=== PATIENT | male | born 1945 | race Caucasian/White ===

== ENCOUNTER 2020-02-29 05:30 | Observation (INO) | payer MEDICARE, BC ==
[2020-02-22 10:21] LABS: BASOPHILS % (AUTO) 0.9 % (0-1); EOSINOPHILS # (AUTO) 0.2 X10'3 (0-0.9); EOSINOPHILS % (AUTO) 2.7 % (0-6); LYMPHOCYTES # (AUTO) 1.4 X10'3 (1.1-4.8); LYMPHOCYTES % (AUTO) 24.5 % (21-51); MEAN CORPUSCULAR HEMOGLOBIN 33.4 PG (27.0-31.0); MEAN CORPUSCULAR HGB CONC 33.7 g/dL (33.0-36.5); MEAN CORPUSCULAR VOLUME 99.2 FL (78-98); MEAN PLATELET VOLUME 8.8 FL (7.4-10.4); MONOCYTES # (AUTO) 0.6 X10'3 (0-0.9); MONOCYTES % (AUTO) 9.8 % (2-12); NEUTROPHILS # (AUTO) 3.6 X10'3 (1.8-7.7); NEUTROPHILS % (AUTO) 62.1 % (42-75); PRE OP HEMATOCRIT 40.2 % (42.0-52.0); PRE OP HEMOGLOBIN 13.5 g/dL (14.0-17.9); PRE OP PLATELET COUNT 249 X10'3 (140-440); RED BLOOD COUNT 4.05 X10'6 (4.70-6.10); RED CELL DISTRIBUTION WIDTH 13.7 % (11.5-14.5)
[2020-02-22 10:33] LABS: ALBUMIN 3.9 G/DL (3.4-5.0); ALBUMIN/GLOBULIN RATIO 1.3 (1.1-1.5); ALKALINE PHOSPHATASE 56 IU/L (46-116); BLOOD UREA NITROGEN 20 MG/DL (7-18); BUN/CREATININE RATIO 16.5 (5.4-32.0); CALCIUM 8.9 MG/DL (8.5-10.1); CHLORIDE 102 MMOL/L (99-107); CREATININE 1.21 MG/DL (0.60-1.10); PRE OP ALT 24 U/L (30-65); PRE OP ANION GAP 6 (8-16); PRE OP AST 17 U/L (10-37); PRE OP BILIRUB, TOTAL 0.3 MG/DL (0.0-1.0); PRE OP GLUCOSE 89 MG/DL (70-104); PRE OP POTASSIUM 4.3 MMOL/L (3.4-5.1); PRE OP SODIUM 138 MMOL/L (135-145); TOTAL CARBON DIOXIDE 29.6 MMOL/L (24-32); eGFR 59 ML/MIN
[~2020-02-29] VITALS: Ht 175.3 cm; Wt 72.2 kg
[2020-02-29] VITALS (18 sets, daily range): BP systolic 117–156; BP diastolic 64–95
[~2020-02-29 05:30] MED LIST: AZO1OS LEFTEYE; DIFL5DRO EACHEYE; ERGO400C PO; ESOM40CA PO; TRIA1CAP2 PO; VANCOMYCIN 1,500MG inj. 1,500 MG in normal saline 500ml IV soln 500 ML IV ONE; VITA-268 PO; acetaminophen 325mg tablet PO ONE; celeCOXIB 100mg capsule PO ONE; famotidine 20mg tablet PO ONE; gabapentin 300mg capsule PO ONE; metoclopramide 5 mg/ml inj IV ONE; oxyCODONE SR 10mg (sust. release) tab -2 tabs (20mg) PO ONE
[2020-02-29] MEDS ORDERED: cefazolin/dext.iso 2gm/50ml 50 ML IV ONE (06:00)
[2020-02-29] MEDS ORDERED: tranexamic acid inj. 1,000 MG in normal saline 100 ML IV ONE (06:00)
[2020-02-29] MEDS: ringers solution, lacted 1,000 ML IV SCH ×2 (06:41→15:03)
[2020-02-29] MEDS ORDERED: ondansetron/PF 4mg/2ml inj IV PRN ×2 (06:55→07:50)
[2020-02-29] MEDS ORDERED: HYDROmorphone inj. 0.5 MG/0.5 ML DISP.SYRIN IV PRN ×2 (06:55→07:50)
[2020-02-29] MEDS ORDERED: diphenhydrAMINE 25mg capsule PO PRN ×2 (06:55)
[2020-02-29] MEDS ORDERED: acetaminophen 325mg tablet PO PRN (06:55)
[2020-02-29] MEDS ORDERED: magnesium hydroxide 30ml (MOM) UD suspension PO PRN (06:55)
[2020-02-29] MEDS ORDERED: oxyCODONE/APAP 10/325mg tablet PO PRN (06:55)
[2020-02-29] MEDS ORDERED: HYDROmorphone 1 mg/ml syringe IV PRN (06:55)
[2020-02-29] MEDS ORDERED: bisacodyl 10mg suppository rectal RC PRN (06:55)
[2020-02-29] MEDS ORDERED: cloNIDine hcl/PF 100mcg/ml inj ONE (06:57)
[2020-02-29] MEDS ORDERED: ketorolac trometh. 30mg/ml inj. ONE (06:57)
[2020-02-29] MEDS ORDERED: vancomycin 1,000mg inj ONE (06:57)
[2020-02-29] MEDS ORDERED: ROPIVAcaine 0.5% (5mg/ml) 30ml vial ONE ×2 (06:57→09:40)
[2020-02-29] MEDS ORDERED: epiNEPHrine 1 mg/ml inj ONE (06:57)
[2020-02-29] MEDS ORDERED: BUPIVAcaine/PF 2.5mg/ml (0.25%) 10ml vial ONE (07:06)
[2020-02-29] MEDS ORDERED: fentaNYL/PF 50MCG/1 ML 2ML syringe ONE (07:09)
[2020-02-29] MEDS ORDERED: MIDAZolam 5mg/5ml vial ONE (07:09)
[2020-02-29] MEDS ORDERED: ringers solution, lacted 1,000 ML IV SCH (07:49)
[2020-02-29] MEDS ORDERED: ROPIVAcaine 0.2%/PF PUMP/bolus 550 ML ADDCANAL SCH ×2 (07:49→08:31)
[2020-02-29] MEDS ORDERED: ROPIVAcaine 0.2% (10 MG/5 ML) BOLUS INJECTION ADDCANAL PRN (07:50)
[2020-02-29] MEDS ORDERED: morphine 2 MG/ML inj. syringe IV PRN (07:50)
[2020-02-29] MEDS: pantoprazole 40mg Tablet.DR PO SCH (08:00)
[2020-02-29] MEDS ORDERED: vancomycin/NS 1 GM ADD-VANTAGE 250 ML IV SCH ×2 (08:00→20:00)
--- NOTE | 2020-02-29 09:00 | NUR ---
Received from OR via bed , accompanied by Anesthesiologist dr joseph and report given by Anesthesiolgist. Patient a&ox4, denies pain, v/s wnl, neurovascular checks intact, sensations t-11, 18g [address], maryellen dressing left knee cdi. scd on.
[2020-02-29] MEDS ORDERED: propofol inj 20 ML IV ONE (09:40)
[2020-02-29] MEDS ORDERED: LIDOcaine 1%/PF 5ML 10 MG/ML VIAL ONE (09:40)
--- NOTE | 2020-02-29 10:00 | NUR ---
Patient a&ox4, denies pain, v/s wnl, neurovascular checks intact, sensations t-11, 18g [address], maryellen dressing left knee cdi. scd on. PATIENT TAKEN TO 4013B WITH ALL BELONGINGS AND HOOKED UP TO MONITORS IN ROOM AND REPORT GIVEN TO SOCIAL MEDIA EDITOR WHO HAS TAKEN OVER PATIENT CARE.
--- NOTE | 2020-02-29 10:09 | NUR ---
Patient a&ox4, denies pain, v/s wnl, neurovascular checks intact, sensations t-11, 18g [address], maryellen dressing left knee cdi. scd on. PATIENT TAKEN TO 4013B WITH ALL BELONGINGS AND HOOKED UP TO MONITORS IN ROOM AND REPORT GIVEN TO UI PROGRAMMER WHO HAS TAKEN OVER PATIENT CARE.
[2020-02-29] MEDS: gabapentin 300mg capsule PO SCH ×2 (13:19→20:33)
[2020-02-29] MEDS: oxyCODONE/APAP 10/325mg tablet PO PRN ×2 (13:21→20:33)
[2020-02-29] MEDS ORDERED: tranexamic acid inj. 700 MG in normal saline 100ml IV soln 100 ML IV ONE (14:00)
[2020-02-29] MEDS: potassium cl 20mEq in 1/2 NS 1,000 ML IV SCH ×3 (14:53→22:53)
[2020-02-29] MEDS: ceFAZolin 1GM/D5W- ADD-VANTAGE 50 ML IV SCH (16:54)
--- NOTE | 2020-02-29 18:35 | NUR ---
Patient in room ORTHO 4013. I have received report from MELI OSMAN and had the opportunity to ask questions and assume patient care.
--- NOTE | 2020-02-29 18:40 | NUR ---
Problems reprioritized. Patient report given, questions answered & plan of care reviewed with MELI Riggins.
[2020-02-29] MEDS: ascorbic acid 500mg tablet PO SCH (20:33)
[2020-02-29] MEDS: dorzolamide 2% ophthalmic drops 10ml LEFTEYE SCH (20:33)
[2020-02-29] MEDS ORDERED: sennosides 8.6mg tablet PO SCH (21:00)
--- NOTE | 2020-02-29 23:41 | NUR ---
GAVE REPORT TO MELI KAM.
[2020-03-01] MEDS: ceFAZolin 1GM/D5W- ADD-VANTAGE 50 ML IV SCH (00:23)
[2020-03-01] MEDS: potassium cl 20mEq in 1/2 NS 1,000 ML IV SCH ×2 (03:08→10:42)
[2020-03-01 03:26] VITALS: BP 131/72
--- NOTE | 2020-03-01 04:54 | NUR ---
Turned On-Q up to 8 to prepare patient for PT rounds. Was at level 2.
--- NOTE | 2020-03-01 06:34 | NUR ---
Problems reprioritized. Patient report given, questions answered & plan of care reviewed with MELI Gardner.
[2020-03-01 06:54] VITALS: BP 131/70
--- NOTE | 2020-03-01 06:57 | NUR ---
Patient in room ORTHO 4013. I have received report from Marga GARRISON and had the opportunity to ask questions and assume patient care.
[2020-03-01 07:03] LABS: BASOPHILS % (AUTO) 0.5 % (0-1); EOSINOPHILS # (AUTO) 0.2 X10'3 (0-0.9); EOSINOPHILS % (AUTO) 2.8 % (0-6); HEMOGLOBIN 12.4 g/dl (14.0-17.9); LYMPHOCYTES # (AUTO) 1.6 X10'3 (1.1-4.8); LYMPHOCYTES % (AUTO) 21.3 % (21-51); MEAN CORPUSCULAR HEMOGLOBIN 33.6 PG (27.0-31.0); MEAN CORPUSCULAR HGB CONC 33.4 g/dL (33.0-36.5); MEAN CORPUSCULAR VOLUME 100.4 FL (78-98); MEAN PLATELET VOLUME 9.3 FL (7.4-10.4); MONOCYTES # (AUTO) 0.8 X10'3 (0-0.9); MONOCYTES % (AUTO) 10.2 % (2-12); NEUTROPHILS # (AUTO) 4.9 X10'3 (1.8-7.7); NEUTROPHILS % (AUTO) 65.2 % (42-75); PLATELET COUNT 232 X10'3 (140-440); RED BLOOD COUNT 3.68 X10'6 (4.70-6.10); RED CELL DISTRIBUTION WIDTH 13.9 % (11.5-14.5); WHITE BLOOD COUNT 7.5 X10'3 (4.5-11.0)
[2020-03-01 07:21] LABS: ANION GAP 7 (8-16); CHLORIDE 104 MMOL/L (99-107); POTASSIUM 4.1 MMOL/L (3.5-5.1); SODIUM 137 MMOL/L (135-145); TOTAL CARBON DIOXIDE 26.3 MMOL/L (24-32)
[2020-03-01] MEDS: gabapentin 300mg capsule PO SCH ×2 (07:34→12:44)
[2020-03-01] MEDS: dorzolamide 2% ophthalmic drops 10ml LEFTEYE SCH (07:34)
[2020-03-01] MEDS: ascorbic acid 500mg tablet PO SCH (07:34)
[2020-03-01] MEDS: pantoprazole 40mg Tablet.DR PO SCH (07:37)
[2020-03-01] MEDS ORDERED: triamterene/HCTZ 37.5/25mg tablet PO SCH (08:00)
[2020-03-01] MEDS ORDERED: DIFLUPREDNATE 0.05% EACHEYE SCH (08:00)
[2020-03-01] MEDS ORDERED: multivitamins, therapeutics tablet PO SCH (08:00)
[2020-03-01] MEDS ORDERED: OPTH EACHEYE SCH (08:00)
[2020-03-01] MEDS ORDERED: aspirin 325mg tablet PO SCH (08:30)
[2020-03-01] MEDS: oxyCODONE/APAP 10/325mg tablet PO PRN (08:52)
[2020-03-01 10:36] VITALS: BP 157/77
--- NOTE | 2020-03-01 12:35 | NUR ---
Joint replacement consult: Pt seen by FAITH for written/verbal high protein ed w/ RD contact information provided. Pt declines additional proteins at this time. Addendum: 03/01/20 at [address] Amended: Links added.
--- NOTE | 2020-03-01 12:55 | NUR ---
Patient was discharged with all belongings. Instructions gone over with patient and signed. Patient was given the opportunity to ask questions. IV taken out. Ice pack and extra dressing sent with patient. to take pt home. W/C to front lobby.
[2020-03-01] MEDS ORDERED: celeCOXIB 100mg capsule PO SCH (20:00)
--- NOTE | 2020-03-06 16:17 | NUR ---
Case Management DC follow up: Status post: LTKA Spoke to pt via telephone, reports:"feeling good, not dancing yet" Denies: acute/continuous cp, emergent SOB, acute general pain, resp distress, LAST, N/V, vertigo, sycope episodes, blurry vision, weakness, abd pain, distension, bladder pain, dysuria, frequency, urgency, hematuria, unexplained bleeding, bruising,fever. Denies s/s infection at surg site. 03/09/20 starts outpatient PT. Verbalizes understanding of s/s that would warrant -/ER visit for evaluation. Verbalizes understanding of new Rx asa 325 mg w/food 6 wks, why prescribed, resumes current Rx as ordered, denies ase r/t polypharmacy. Acknowledges need to schedule/keep follow up appts w/PCP/[facility]; Follow up w/surgeon next week. pt verbalizes compliant w/aftercare protocol. Needs met, questions answered at DC, no further questions r/t post status DC at this time.
== END 2020-03-01 12:55 | disposition home or self-care (01) ==
LOC: PAS 05:30 → INTOOBSV 06:55 → ORTHO 4S 06:55
PROVIDERS: ADMIT Orthopaedic Surgery; ATTEND Orthopaedic Surgery
DX: Z03.818 Encounter for observation for suspected exposure to other biological agents ruled out (principal); M17.12 Unilateral primary osteoarthritis, left knee; I10 Essential (primary) hypertension; K21.9 Gastro-esophageal reflux disease without esophagitis; D62 Acute posthemorrhagic anemia; H40.9 Unspecified glaucoma; Z79.899 Other long term (current) drug therapy
CPT/HCPCS: 27447; 36415; 73560; 80051; 80053; 82948; 85025; 87081; 96365; 96366; 96367; 96375; 97110; 97116; 97162; 97530; A6454; C1713; C1776; G0378; J0171; J0690; J0735; J1885; J2250; J2704; J2765; J2795; J3010; J3370; J3490; J7040; J7120; U0003; A6449; A7000; J3480

== ENCOUNTER 2023-11-17 10:55 | Outpatient (CLI) | payer MEDICARE, BC ==
[~2023-11-17 10:55] MED LIST changes: -AZO1OS LEFTEYE; +BRIN10DR6 LEFTEYE; -VANCOMYCIN 1,500MG inj. 1,500 MG in normal saline 500ml IV soln 500 ML IV ONE; -acetaminophen 325mg tablet PO ONE; -celeCOXIB 100mg capsule PO ONE; -famotidine 20mg tablet PO ONE; -gabapentin 300mg capsule PO ONE; -metoclopramide 5 mg/ml inj IV ONE; -oxyCODONE SR 10mg (sust. release) tab -2 tabs (20mg) PO ONE
== END 2023-11-17 23:59 | disposition home or self-care (01) ==
LOC: RAD 10:55
PROVIDERS: ATTEND Family Medicine
DX: R41.89 Other symptoms and signs involving cognitive functions and awareness (principal)
CPT/HCPCS: 70551

== ENCOUNTER → 2025-04-18 | Outpatient (CLI) | payer MEDICARE, BC ==
--- NOTE | 2025-04-18 12:01 | RADIOLOGY REPORT ---
Indication: OTHER SPECIFIED DISORDERS OF THE MALE GENITAL ORGANS Technique: Real-time ultrasound images through the scrotum. Comparison: None Findings: Right testicle measures 4.9 x 2 x 3.0 cm. It has normal echogenicity and echotexture, with no focal solid or cystic mass. There is normal flow on color Doppler, with normal waveforms. The right epididy mal head measures 0.9 cm, and has a cyst measuring 6 mm. Left testicle measures 3.6 x 1.8 x 3.1 cm. It has normal echogenicity and echotexture, with no focal solid or cystic mass. There is normal flow on color Doppler, with normal waveforms. The left epididy mal head measures 1.7 cm, and has a large cyst measuring 2.3 x 1.9 cm. Left varicocele measuring up to 3 mm in diameter. Impression: Large left epididymal cysts measuring 2.3 cm. Right epididymal cysts measuring 5 mm. Left varicocele.
== END | disposition home or self-care (01) ==
LOC: RAD 10:16
PROVIDERS: ATTEND Family Medicine
DX: N50.3 Cyst of epididymis (principal); N50.89 Other specified disorders of the male genital organs; I86.1 Scrotal varices
CPT/HCPCS: 76870; 93976